=== PATIENT | male | born 1970 | race Caucasian/White ===

== ENCOUNTER → 2018-09-28 | Outpatient (CLI) | payer BC ==
--- NOTE | 2018-09-28 15:23 | Diagnostic Imaging Report ---
Exam: Left ankle series; 3 views History: Pain Comparison: None available Findings: Spurring of the calcaneus is present. Posttraumatic degenerative changes associated with an old medial malleolar fracture is present. No acute abnormality is seen. The ankle mortise appears intact. Impression: Degenerative changes of the calcaneus and posttraumatic changes of the medial malleolus. Signed by: Dr. Antwon Barahona DO on 09/28/2018 3:19 PM
== END ==
LOC: RAD 13:43
PROVIDERS: ATTEND Internal Medicine
DX: M25.572 Pain in left ankle and joints of left foot (principal); M25.472 Effusion, left ankle; M13.872 Other specified arthritis, left ankle and foot